=== PATIENT | female | born 1995 | race Caucasian/White ===

== ENCOUNTER 2020-06-25 21:12 | Inpatient (IN) | payer BC ==
[2020-06-25] MEDS ORDERED: OXYTOCIN 10 UNIT/ML VIAL ONE (22:01)
[2020-06-25] MEDS ORDERED: PENICILLIN G-K 5 MILLION UNIT VIAL ONE (22:01)
[2020-06-25] MEDS ORDERED: LIDOCAINE 1% INJ-PF (10 MG/ML) 30 ML SDV ONE (22:01)
[2020-06-25] MEDS ORDERED: MISOPROSTOL 0.2 MG TABLET ONE (22:01)
[2020-06-25] MEDS ORDERED: RINGERS SOLUTION,LACTATED 1,000 ML IV PRN (22:02)
[2020-06-25] MEDS ORDERED: OXYTOCIN/0.9 % SODIUM CHLORIDE 30 UNIT/500 ML RTUINJ ONE (22:02)
[2020-06-25] MEDS ORDERED: BETAMET ACET/BETAMET NA INJ 6 MG/1 ML ONE ×2 (22:09→22:14)
[2020-06-25] MEDS ORDERED: VANCOMYCIN HCL INJ 1000 MG VIAL ONE (22:09)
[2020-06-25 22:14] LABS: APPEARANCE,URINE CLEAR; BILIRUBIN,URINE NEGATIVE (NEGATIVE); COLOR,URINE STRAW; GLUCOSE, URINE 50 mg/dL (NEGATIVE); KETONES,URINE 20 mg/dL (NEGATIVE); LEUKOCYTE ESTERASE,URINE NEGATIVE (NEGATIVE); NITRITE,URINE NEGATIVE (NEGATIVE); PROTEIN,URINE NEGATIVE (NEGATIVE); URINE SPECIFIC GRAVITY 1.006; UROBILINOGEN,URINE NEGATIVE mg/dL (<2.0)
[2020-06-25] MEDS ORDERED: VANCOMYCIN HCL INJ 1000 MG VIAL IV PRN (22:15)
[2020-06-25] MEDS ORDERED: RINGERS SOLUTION,LACTATED 1,000 ML IV ONE (22:30)
[2020-06-25 22:34] LABS: URINE AMPHETAMINES SCREEN NEGATIVE; URINE BARBITURATES SCREEN NEGATIVE; URINE BENZODIAZEPINES SCREEN NEGATIVE; URINE COCAINE SCREEN NEGATIVE; URINE MARIJUANA (THC) SCREEN NEGATIVE; URINE METHADONE SCREEN NEGATIVE; URINE PHENCYCLIDINE SCREEN NEGATIVE
[2020-06-25 22:37] LABS: HEMATOCRIT 34.3 % (36.0-47.0); HEMOGLOBIN 11.5 g/dL (12.0-15.5); MEAN CORPUSCULAR HEMOGLOBIN 29.5 pg (27.0-33.4); MEAN CORPUSCULAR HGB CONC 33.5 g/dL (32.0-36.0); MEAN CORPUSCULAR VOLUME 88 fl (80-97); PLATELET COUNT 173 10^3/uL (150-450); RED BLOOD COUNT 3.88 10^6/uL (3.72-5.28); RED CELL DISTRIBUTION WIDTH 13.2 % (11.5-14.0)
[2020-06-25 22:53] LABS: ABSOLUTE LYMPHOCYTES# (MANUAL) 1.8 10^3/uL (0.5-4.7); ABSOLUTE MONOCYTES # (MANUAL) 0.7 10^3/uL (0.1-1.4); BASOPHILS % (MANUAL) 0 % (0-2); EOSINOPHILS % (MANUAL) 0 % (0-6); LYMPHOCYTES % (MANUAL) 8 % (13-45); MONOCYTES % (MANUAL) 3 % (3-13); SEGMENTED NEUTROPHILS % (MAN) 89 % (42-78); TOTAL CELLS COUNTED 100
[2020-06-25 22:55] LABS: PLATELET COMMENT ADEQUATE; RBC MORPHOLOGY COMMENT NORMO-CYTIC/CHROMIC
--- NOTE | 2020-06-25 22:58 | Admission Physical ---
Datetime Report Generated by CPN: 06/25/2020 22:58 CURRENT ADMISSION Chief Complaint: Uterine Contractions Indication for Induction: Not Applicable Admit Impression : , Intrauterine ; Active Labor Admit Plan: Initiate Labor Protocol ALLERGIES Medication Allergies: Yes Latex: No Latex Allergies OBSTETRICAL HISTORY EDC: 09/12/2020 00:00 : 1 Para: 0 Gestational Diabetes: No Rh Sensitization: No Incompetent Cervix: No TREV: No Infertility: No ART Treatment: No Uterine Anomaly: No IUGR: No Hx Previous C/S: No Macrosomia: No Hx Loss/Stillborn: No PIH: No Hx : No Placenta Previa/Abruption: No Depression/PP Depression: No PTL/PROM: No Post Hemorrhage: No Current Procedures: Ultrasound Obstetrical History Comments: G1- current SEE RECORDS Alcohol: No Marijuana : No Cocaine: No Other Illicit Drugs: No Cigarettes: Never Smoker. [id number] MEDICAL HISTORY Diabetes: No Blood Transfusion: No Pulmonary Disease (Asthma, TB): No Breast Disease: No Hypertension: No Dye Can Operator Surgery: No Heart Disease: No Hosp/Surgery: Yes Autoimmune Disorder: No Anesthetic Complications: No Kidney Disease: No Abnormal Pap Smear: No Neuro/Epilepsy: No Psychiatric Disorders: No Other Medical Diseases: No Hepatitis/Liver Disease: No Significant Family History: No Varicosities/Phlebitis: No Trauma/Violence : No Thyroid Dysfunction: No Medical History Comments: hospitalized as child - unsure why INFECTIOUS HISTORY Gonorrhea: No Genital Herpes: No Chlamydia: No Tuberculosis: No Syphilis: No Hepatitis: No HIV/AIDS Exposure: No Rash or Viral Illness: No HPV: No PHYSICAL EXAM General: Normal HEENT: Normal Neurologic: Normal Thyroid: Normal Heart: Normal Lungs: Normal Breast: Deferred Back: Normal Abdomen: Normal Genitourinary Exam: Normal Extremities: Normal DTRs: Normal Pelvic Type: Adequate FETUS A EGA: 28.5 PLANS FOR LABOR AND DELIVERY Labor and Delivery: None Pain Management: Epidural Benefit of Breast Feed Discussed: Yes INFORMED CONSENT Signature: with User ID: [email or web address]
[2020-06-25] MEDS ORDERED: VANCOMYCIN HCL 1,000 MG in DEXTROSE 5%-WATER 250 ML IV ONE (23:00)
[2020-06-25] MEDS ORDERED: MEASLES,MUMPS&RUBELLA VACC/PF 0.5 ML VIAL SUBCUT PRN (23:33)
[2020-06-25] MEDS ORDERED: MAGNESIUM HYDROXIDE SUSP 30 ML UDCUP PO PRN (23:33)
[2020-06-25] MEDS ORDERED: OXYTOCIN/0.9 % SODIUM CHLORIDE 30 UNIT/500 ML RTUINJ IV PRN (23:33)
[2020-06-25] MEDS ORDERED: GLYCERIN/WITCH HAZEL LEAF 1 EACH MED..WIPE TP PRN (23:33)
[2020-06-25] MEDS ORDERED: BENZOCAINE/MENTHOL AEROSOL SPRAY 56 ML TOP PRN (23:33)
[2020-06-25] MEDS ORDERED: PROMETHAZINE HCL INJ 25 MG/1 ML VIAL IV PRN (23:33)
[2020-06-25] MEDS ORDERED: DIBUCAINE 1% OINTMENT 28 GM TP PRN (23:33)
[2020-06-25] MEDS ORDERED: PROMETHAZINE HCL 25 MG SUPP.RECT PR PRN (23:33)
[2020-06-25] MEDS ORDERED: DIPH/PERTUSS(ACELL)/TETANUS VAC/PF 0.5 ML SYR (>=10YO) IM PRN (23:33)
[2020-06-25] MEDS ORDERED: ZOLPIDEM TARTRATE 5 MG TABLET PO PRN (23:33)
[2020-06-25] MEDS ORDERED: PSEUDOEPHEDRINE HCL 30 MG TABLET PO PRN (23:33)
[2020-06-25] MEDS ORDERED: PROMETHAZINE HCL 25 MG TABLET PO PRN (23:33)
[2020-06-25] MEDS ORDERED: ACETAMINOPHEN WITH CODEINE #3 TABLET PO PRN (23:33)
[2020-06-25] MEDS ORDERED: DIPHENHYDRAMINE HCL 25 MG CAPSULE PO PRN (23:33)
[2020-06-25] MEDS ORDERED: ACETAMINOPHEN 650 MG SUPP.RECT PR PRN (23:33)
[2020-06-25] MEDS ORDERED: NA PHOS,M-B/NA PHOS,DI-BA (ADULT) 133 ML ENEMA PR PRN (23:33)
[2020-06-25] MEDS ORDERED: IBUPROFEN 800 MG TABLET ONE (23:42)
[2020-06-26] MEDS ORDERED: BETAMET ACET/BETAMET NA INJ 6 MG/1 ML ONE (00:05)
[2020-06-26 05:44] LABS: HEMATOCRIT 34.3 % (36.0-47.0); HEMOGLOBIN 11.7 g/dL (12.0-15.5); MEAN CORPUSCULAR HEMOGLOBIN 29.9 pg (27.0-33.4); MEAN CORPUSCULAR HGB CONC 34.1 g/dL (32.0-36.0); MEAN CORPUSCULAR VOLUME 88 fl (80-97); PLATELET COUNT 224 10^3/uL (150-450); RED BLOOD COUNT 3.91 10^6/uL (3.72-5.28); RED CELL DISTRIBUTION WIDTH 13.3 % (11.5-14.0)
[2020-06-26] MEDS ORDERED: IBUPROFEN 800 MG TABLET PO SCH (06:00)
[2020-06-26 06:34] LABS: WHITE BLOOD COUNT 30.3 10^3/uL (4.0-10.5)
[2020-06-26] MEDS: FAMOTIDINE 20 MG TABLET PO SCH ×2 (07:49→09:36)
[2020-06-26 08:22] VITALS: BP 105/60
[2020-06-26] MEDS ORDERED: DOCUSATE SODIUM 100 MG CAPSULE PO SCH (10:00)
[2020-06-26] MEDS ORDERED: PRENATAL VITAMIN W DHA CAPSULE PO SCH (10:00)
[2020-06-26] MEDS ORDERED: SENNOSIDES/DOCUSATE 8.6-50 MG 1 EACH TABLET PO SCH (10:00)
[2020-06-26] MEDS ORDERED: FERROUS SULFATE 325 MG TABLET PO SCH (10:00)
[2020-06-26] MEDS ORDERED: VANCOMYCIN HCL 1,000 MG in DEXTROSE 5%-WATER 250 ML IV SCH (10:00)
--- NOTE | 2020-06-26 10:01 | PDOC PROGRESS REPORT ---
Subjective-OB Progress Note for:: 06/26/20 Subjective: eating bkf, hsb at BS, no c/o, wants to be discharged to go to [facility] to be with baby Physical Exam (OB) Vital Signs: Temp Pulse Resp BP Pulse Ox 97.8 F 85 16 105/60 98 06/26/20 08:08 06/26/20 08:08 06/26/20 08:08 06/26/20 08:08 06/26/20 08:08 Intake & Output 06/25/20 06/26/20 06/27/20 06:59 06:59 06:59 Weight 62.3 kg - PIH/Pre-Eclampsia DTR's: 1 + Clonus: Negative Headache: Absent Epigastric Pain: No Visual Changes: No - Maternal Morbidity 59. Maternal Morbidity (serious complications experinced by the mother associated with labor and delivery: None of the above - Lochia Lochia Amount: Small 10-25 ml Lochia Color: Rubra/Red - Abdomen Description: Soft, Round Fundal Description: Firm, Midline Fundal Height: u/u - u/2 Objective-Diagnostic Laboratory: 06/26/20 05:04 06/25/20 06/25/20 06/25/20 21:23 22:18 22:18 WBC 23.0 H RBC 3.88 Hgb 11.5 L Hct 34.3 L MCV 88 MCH 29.5 MCHC 33.5 RDW 13.2 Plt Count 173 Seg Neutrophils % Not Reportable Urine Color STRAW Urine Appearance CLEAR Urine pH 6.0 Ur Specific [employer] 1.006 Urine Protein NEGATIVE Urine Glucose (UA) 50 H Urine Ketones 20 H Urine Blood NEGATIVE Urine Nitrite NEGATIVE Ur Leukocyte Esterase NEGATIVE Urine WBC (Auto) 1 Urine RBC (Auto) 0 Blood Type A POSITIVE Antibody Screen NEGATIVE 06/26/20 05:04 WBC 30.3 H* RBC 3.91 Hgb 11.7 L Hct 34.3 L MCV 88 MCH 29.9 MCHC 34.1 RDW 13.3 Plt Count 224 Seg Neutrophils % Urine Color Urine Appearance Urine pH Ur Specific [employer] [employer] Urine Protein Urine Glucose (UA) Urine Ketones Urine Blood Urine Nitrite Ur Leukocyte Esterase Urine WBC (Auto) Urine RBC (Auto) Blood Type Antibody Screen Assessment and Plan(PN) - Assessment and Plan (1) labor in third trimester with delivery Qualifiers: Fetus number: single or unspecified fetus Qualified Code(s): O60.14X0 - labor third trimester with delivery third trimester, not applicable or unspecified Is this a current diagnosis for this admission?: Yes (2) contractions Is this a current diagnosis for this admission?: Yes - Time Spent with Patient Time with patient: Less than 15 minutes Medications reviewed and adjusted accordingly: Yes - Disposition Anticipated Discharge Disposition: Home, Self Care Anticipated Discharge Timeframe: within 24 hours - home today to go to [facility] to be with baby, pt aware of elevated WBC and will start antibiotics
--- NOTE | 2020-06-26 10:13 | PDOC DISCHARGE SUMMARY ---
Impression - Admit/DC Date/PCP Admission Date/Primary Care Provider: 06/25/20 22:07 WILLIE WILLOUGHBY MD Discharge Date: 06/26/20 - Discharge Diagnosis (1) labor in third trimester with delivery Is this a current diagnosis for this admission?: Yes (2) contractions Is this a current diagnosis for this admission?: Yes - Additional Information Resuscitation Status: Full Code Discharge Diet: As Tolerated Discharge Activity: Activity As Tolerated, Pelvic Rest Referrals: WILLIE WILLOUGHBY MD [Primary Care Provider] - (A 1 week) Prescriptions: Cephalexin Monohydrate [Keflex 500 mg Capsule] 500 mg PO Q8 #30 capsule Doxycycline Hyclate [Vibramycin 100 mg Tablet] 100 mg PO Q12 #20 tablet Home Medications: Cephalexin Monohydrate [Keflex 500 mg Capsule] 500 mg PO Q8 #30 capsule 06/26/20 Doxycycline Hyclate [Vibramycin 100 mg Tablet] 100 mg PO Q12 #20 tablet 06/26/20 Prenat 115/Iron Fum/Folic/Dss [ 19 Tablet] 1 tab PO DAILY 06/26/20 HPI Gestational Age: 28.5 Reason(s) for Admission: Onset of Labor, Labor Procedures: Ultrasound Intrapartum Procedure(s): Spontaneous Vaginal Delivery Hospital Course Hospital Course: elevated WBC 59. Maternal Morbidity (serious complications experinced by the mother associated with labor and delivery: None of the above Results Laboratory Results: WBC 30.3 10^3/uL (4.0-10.5) H* 06/26/20 05:04 RBC 3.91 10^6/uL (3.72-5.28) 06/26/20 05:04 Hgb 11.7 g/dL (12.0-15.5) L 06/26/20 05:04 Hct 34.3 % (36.0-47.0) L 06/26/20 05:04 MCV 88 fl (80-97) 06/26/20 05:04 MCH 29.9 pg (27.0-33.4) 06/26/20 05:04 MCHC 34.1 g/dL (32.0-36.0) 06/26/20 05:04 RDW 13.3 % (11.5-14.0) 06/26/20 05:04 Plt Count 224 10^3/uL (150-450) 06/26/20 05:04 Lymph % (Auto) Not Reportable 06/25/20 22:18 [place] % (Auto) Not Reportable 06/25/20 22:18 Eos % (Auto) Not Reportable 06/25/20 22:18 Baso % (Auto) Not Reportable 06/25/20 22:18 Absolute Neuts (auto) Not Reportable 06/25/20 22:18 Absolute Lymphs (auto) Not Reportable 06/25/20 22:18 Absolute Monos (auto) Not Reportable 06/25/20 22:18 Absolute Eos (auto) Not Reportable 06/25/20 22:18 Absolute Basos (auto) Not Reportable 06/25/20 22:18 Total Counted 100 06/25/20 22:18 Seg Neutrophils % Not Reportable 06/25/20 22:18 Seg Neuts % (Manual) 89 % (42-78) H 06/25/20 22:18 Lymphocytes % (Manual) 8 % (13-45) L 06/25/20 22:18 Monocytes % (Manual) 3 % (3-13) 06/25/20 22:18 Eosinophils % (Manual) 0 % (0-6) 06/25/20 22:18 Basophils % (Manual) 0 % (0-2) 06/25/20 22:18 Abs Neuts (Manual) 20.5 10^3/uL (1.7-8.2) H 06/25/20 22:18 Abs Lymphs (Manual) 1.8 10^3/uL (0.5-4.7) 06/25/20 22:18 Abs Monocytes (Manual) 0.7 10^3/uL (0.1-1.4) 06/25/20 22:18 Absolute Eos (Manual) 0.0 10^3/uL (0.0-0.6) 06/25/20 22:18 Abs Basophils (Manual) 0.0 10^3/uL (0.0-0.2) 06/25/20 22:18 Platelet Comment ADEQUATE 06/25/20 22:18 RBC Morph Comment NORMO-CYTIC/CHROMIC 06/25/20 22:18 Urine Color STRAW 06/25/20 21:23 Urine Appearance CLEAR 06/25/20 21:23 Urine pH 6.0 (5.0-9.0) 06/25/20 21:23 Ur Specific [place] 1.006 06/25/20 21:23 Urine Protein NEGATIVE mg/dL (NEGATIVE) 06/25/20 21:23 Urine Glucose (UA) 50 mg/dL (NEGATIVE) H 06/25/20 21:23 Urine Ketones 20 mg/dL (NEGATIVE) H 06/25/20 21:23 Urine Blood NEGATIVE (NEGATIVE) 06/25/20 21:23 Urine Nitrite NEGATIVE (NEGATIVE) 06/25/20 21:23 Urine Bilirubin NEGATIVE (NEGATIVE) 06/25/20 21:23 Urine Urobilinogen NEGATIVE mg/dL (<2.0) 06/25/20 21:23 Ur Leukocyte Esterase NEGATIVE (NEGATIVE) 06/25/20 21:23 Urine WBC (Auto) 1 /HPF 06/25/20 21:23 Urine RBC (Auto) 0 /HPF 06/25/20 21:23 Squamous Epi Cells Auto 1 /HPF 06/25/20 21:23 Urine Mucus (Auto) RARE /LPF 06/25/20 21:23 Urine Ascorbic Acid NEGATIVE (NEGATIVE) 06/25/20 21:23 Urine Opiates Screen NEGATIVE 06/25/20 21:23 Urine Methadone Screen NEGATIVE 06/25/20 21:23 Ur Barbiturates Screen NEGATIVE 06/25/20 21:23 Ur Phencyclidine Scrn NEGATIVE 06/25/20 21:23 Ur Amphetamines Screen NEGATIVE 06/25/20 21:23 U Benzodiazepines Scrn NEGATIVE 06/25/20 21:23 Urine Cocaine Screen NEGATIVE 06/25/20 21:23 U Marijuana (THC) Screen NEGATIVE 06/25/20 21:23 SARS-CoV-2 (PCR) NEGATIVE (NEGATIVE) 06/25/20 23:04 Blood Type A POSITIVE 06/25/20 22:18 Antibody Screen NEGATIVE 06/25/20 22:18 Plan Health Concerns: elevated WBC Plan of Treatment: discharge to see baby, Doxy and Keflex Goals: no fever, no infection, rev S&S to report Time Spent: Less than 30 Minutes
[2020-06-26] MEDS ORDERED: DOXYCYCLINE HYCLATE 100 MG TABLET PO SCH (11:00)
[2020-06-26 11:03] LABS: PATH REVIEW PATHOLOGIST REVIEWED
[2020-06-26] MEDS ORDERED: CEPHALEXIN 500 MG CAPSULE PO SCH (12:00)
--- NOTE | 2020-06-26 12:05 | Birth Certificate Data ---
Cert Data Datetime Report Generated by CPN: 06/26/2020 12:05 CERTIFICATE DATA 47a. Care: Yes (06/25/2020 21:42:Rekha Goncalves RN) RISK FACTORS IN THIS 49a. Diabetes: No (06/25/2020 21:42:Rekha Goncalves RN) 49b. Hypertension: No (06/25/2020 21:42:Rekha Goncalves RN) 49d. Stillborns: No (06/25/2020 21:42:Rekha Goncalves, RN) 49d. IUGR: No (06/25/2020 21:42:Rekha Goncalves, RN) 49e. Infertility Treatment: No (06/25/2020 21:42:Rekha Goncalves, RN) Mother's Height 50b. Height Inches: 59 (06/26/2020 10:11:QS system process) Mother's Weight 51b. Weight at Delivery (lbs): 136 (06/26/2020 10:11:QS system process) Infections Present/Treated 53a. Gonorrhea: No (06/25/2020 21:42:Rekha Goncalves RN) 53b. Syphilis: No (06/25/2020 21:42:Rekha Goncalves RN) Results this Hospital Visit: NONREACTIVE (06/25/2020 22:18:QS system process) 53c. Chlamydia: No (06/25/2020 21:42:Rekha Goncalves RN) 53d. Hepatitis B: No (06/25/2020 21:42:Rekha Goncalves RN) Results this Hospital Visit: Negative (06/25/2020 21:42:Rekha Goncalves RN) 53e. Hepatitis C: Negative (06/25/2020 21:42:Rekha Goncalves RN) 53j. Test Result: Negative (06/25/2020 21:42:Rekha Goncalves RN) Obstetric Procedures 54a, b, c. Obstetric Procedures: Ultrasound (06/25/2020 21:42:Rekha Goncalves RN) Onset of Labor 56a. PROM >12 Hrs: 0.18 (06/25/2020 21:42:QS system process) 56b. Precipitous Labor <3 Hrs: 7 (06/25/2020 21:42:QS system process) 56c. Prolonged Labor > 20 Hrs: 7 (06/25/2020 21:42:QS system process) 57a. Induction of Labor: N/A (06/25/2020 21:42:Zari Cole RN) 57c. Non-Vertex Presentation A: Vertex (06/25/2020 21:42:Zari Cole RN) 57d. Steroids - Lung Mat: Partial Course (06/25/2020 21:42:Joe Schwartz MD ([facility])) 57d. Steroids - Lung Mat: Celestone 12mg IM - Dose 1 (06/25/2020 22:22:Rekha Goncalves RN) 57d. Steroids - Lung Mat: Imminent Delivery (06/25/2020 21:42:Joe Schwartz MD ([facility])) 57e. Antibiotics During Labor: 06/25/2020 22:21 (06/25/2020 21:42:Zari Cole RN) 57g. Moderate/Heavy Meconium: Clear (06/25/2020 23:14:Rekha Goncalves RN) 57h. Intolerance of Labor: N/A (06/25/2020 21:42:Zari Cole RN) : N/A (06/25/2020 21:42:Zari Cole RN) 57i. Epidural/Spinal Anesthesia: None (06/25/2020 21:42:Zari Cole RN) Method of Delivery 58a. Forceps - Unsuccessful A: N/A (06/25/2020 21:42:Zari Cole RN) 58b. Vacuum - Unsuccessful A: N/A (06/25/2020 21:42:Zari Cole RN) 58c. Presentation at 58c. Presentation at - A : Vertex (06/25/2020 21:42:Zari Cole RN) 58c. Presentation at - A : N/A (06/25/2020 21:42:Zari oCle RN) 58c. Presentation at - A : Cephalic (06/25/2020 21:42:Zari Cole RN) Final Route and Method of Del 58d. Baby A Route/Delivery: Vaginal (06/25/2020 23:25:Rekha Goncalves RN) 58e. Trial of Labor Attempted: No (06/25/2020 21:42:Zari Cole RN) 58e. Trial of Labor Attempted A: N/A (06/25/2020 21:42:Zari Cole RN) Maternal Morbidity 59b. 3rd or 4th Degree Lacs: None (06/25/2020 21:42:Joe Schwartz MD ([facility])) Birthweight Baby A: 1420 (06/25/2020 21:42:Rekha Goncalves RN) 60a. Pounds : 3 (06/25/2020 21:42:QS system process) 60b. Ounces: 2 (06/25/2020 21:42:QS system process) 61. GA at Delivery Baby A: 28.5 (06/25/2020 21:42:Zari Jilek, RN) : - <34 Weeks (06/25/2020 21:42:QS system process) 62a. 5 Minute Baby A: 6 (06/25/2020 21:42:QS system process) 62b. 10 Minute Baby A: 6 (06/25/2020 21:42:QS system process)
--- NOTE | 2020-06-26 12:05 | Delivery Summary ---
Del Sum A-C Datetime Report Generated by CPN: 06/26/2020 12:05 DELIVERY PERSONNEL DELIVERY PERSONNEL: [id number] Delivery Doctor:: Joe Schwartz MD Labor and Delivery Nurse:: Rekha Goncalves RNlicensed physical therapist Nurse:: Zari Cole RN Neonatal Nurse Practitioner:: WALTER Friedman Nursery Nurse:: aMg Giraldo RN Chief Controller/GENERAL OPHTHALMOLOGIST: Dominic Patel, PHYSICAL THERAPY ASSISTANT INSTRUCTOR MATERNAL INFORMATION Delivery Anesthesia: None Medications After Delivery: Pitocin 30 Units in 500ml NS/D5W Delivery QBL: 50 Maternal Complications: Other Complication Details: labor LABOR SUMMARY EDC: 09/12/2020 00:00 No. Babies in Womb: 1 Attempted: No Labor Anesthesia: None LABOR INFORMATION Reason for Induction: Not Applicable Onset of Labor: 06/25/2020 16:00 Complete Dilatation: 06/25/2020 22:50 Oxytocin: N/A Group B Beta Strep: unknown Antibiotics # of Doses: 1 Antibiotics Time of Last Dose: 06/25/2020 22:21 Name of Antibiotic Given: vanc Steroids Given: Partial Course Reason Steroids Not Administered: Imminent Delivery MEMBRANES Membranes Rupture Method: Spontaneous Rupture of Membranes: 06/25/2020 23:14 Length of Rupture (hr): 0.18 Amniotic Fluid Color: Clear Amniotic Fluid Amount: Small Amniotic Fluid Odor: Normal STAGES OF LABOR Stage 1 hr: 6 Stage 1 min: 50 Stage 2 hr: 0 Stage 2 min: 35 Stage 3 hr: 0 Stage 3 min: 2 Total Time in Labor hr: 7 Total Time in Labor min: 27 VAGINAL DELIVERY Episiotomy: None Laceration #1: None Sponge Count Correct: Yes Sharps Count Correct: Yes CSECTION DELIVERY Primary Indication: N/A Secondary Indication: N/A CSection Incidence: N/A Labor: N/A Elective: N/A CSection Incision: N/A BABY A INFORMATION Infant Delivery Date/Time: 06/25/2020 23:25 Method of Delivery: Vaginal Nurse Controlled Delivery: No Born in Route : No : N/A Forceps: N/A Vacuum Extraction: N/A Shoulder Dystocia : No PRESENTATION/POSITION BABY A Presentation: Cephalic Cephalic Presentation: Vertex Vertex Position: Right Occipital Anterior Breech Presentation: N/A PLACENTA INFORMATION BABY A Placenta Delivery Time : 06/25/2020 23:27 Placenta Method of Delivery: Spontaneous Placenta Status: Delivered SCORES BABY A Heart Rate 1 min: Slow, Below 100 bpm Resp Effort 1 min: Slow, Irregular Reflex Irritability 1 min: No Response Muscle Tone 1 min: Flaccid Color 1 min: Blue/Pale Resuscitation Effort 1 min: Tactile Stimulation; Oxygen; PPV/NCPAP SCORE 1 MIN: 2 Heart Rate 5 min: >100 bpm Resp Effort 5 min: Slow, Irregular Reflex Irritability 5 min: [place] Muscle Tone 5 min: Some Flexion of Extremities Color 5 min: Body [place], Extremities Blue Resuscitation Effort 5 min: Tactile Stimulation; Oxygen; PPV/NCPAP SCORE 5 MIN: 6 Heart Rate 10 min: >100 bpm Resp Effort 10 min: Slow, Irregular Reflex Irritability 10 min: [place] Muscle Tone 10 min: Some Flexion of Extremities Color 10 min: Body [place], Extremities Blue Resuscitation Effort 10 min: Tactile Stimulation; Oxygen; PPV/NCPAP SCORE 10 MIN: 6 INFANT INFORMATION BABY A Gestational Age at Delivery: 28.5 Gestational Status: - <34 Weeks Outcome : Liveborn Infant Condition : Critical Sex: Male IDENTIFICATION BABY A Verification Date/Time: 06/25/2020 23:37 ID Band Number: [id number] Mother's Name Verified: Yes RN Verifying : E. Jilek RN/ M.Goncalves RN WEIGHT/LENGTH BABY A Infant Birthweight (gm): 1420 Infant Weight (lb): 3 Infant Weight (oz): 2 Infant Length (in): 15.00 Infant Length (cm): 38.10 CORD INFORMATION BABY A No. Cord Vessels: 3 Nuchal Cord : N/A Cord Blood Taken: Yes-For Storage (Mom's Blood type +) ASSESSMENT BABY A Infant Complications: None Physical Findings at Delivery: Within Normal Limits; Other Physical Findings- Other: see initial nursery note Skin to Skin: No Transferred To: NICU SIGNATURES Signature: with User ID: [email or web address]
== END 2020-06-26 12:04 | disposition home or self-care (01) | DRG 805 ==
LOC: LC 21:12 → LR 22:07 → 2S 06-26 03:50
PROVIDERS: ADMIT Obstetrics & Gynecology Gynecology; ATTEND Obstetrics & Gynecology Gynecology
PROC: 10E0XZZ Delivery of Products of Conception, External Approach (ICD-10-PCS; principal; 2020-06-25)
DX: O60.14X0 Preterm labor third trimester with preterm delivery third trimester, not applicable or unspecified (principal); O41.1230 Chorioamnionitis, third trimester, not applicable or unspecified; Z37.0 Single live birth; Z3A.28 28 weeks gestation of pregnancy; Z03.818 Encounter for observation for suspected exposure to other biological agents ruled out
CPT/HCPCS: 36415; 80307; 81001; 85025; 85027; 86592; 86850; 86900; 86901; 87635; 88307; C9803; J0702; J2540; J2590; J3370; J3490; J7060